=== PATIENT | female | born 1990 | race Caucasian/White ===

== ENCOUNTER 2023-01-01 07:52 | Emergency (ER) | payer MEDICAID ==
[~2023-01-01] VITALS: Ht 162.6 cm; Wt 103.0 kg
[2023-01-01 08:03] VITALS: BP 146/89
[2023-01-01] MEDS ORDERED: TOPUD MT (10:13)
== END 2023-01-01 10:28 | disposition home or self-care (01) ==
LOC: ER 07:52
DX: S71.101A Unspecified open wound, right thigh, initial encounter (principal); X58.XXXA Exposure to other specified factors, initial encounter; Y93.89 Activity, other specified; Y92.89 Other specified places as the place of occurrence of the external cause; Y99.8 Other external cause status; F41.9 Anxiety disorder, unspecified; J45.909 Unspecified asthma, uncomplicated; F32.9 Major depressive disorder, single episode, unspecified
CPT/HCPCS: 10060; 99282; Z7610

== ENCOUNTER 2023-01-03 08:49 | Emergency (ER) | payer MEDICAID ==
[~2023-01-03] VITALS: Ht 162.6 cm; Wt 96.0 kg
[~2023-01-03 08:49] MED LIST: TOPUD MT
[2023-01-03 08:59] VITALS: BP 118/93
== END 2023-01-03 10:02 | disposition home or self-care (01) ==
LOC: ER 08:49
DX: L02.416 Cutaneous abscess of left lower limb (principal); Z48.00 Encounter for change or removal of nonsurgical wound dressing; Z98.890 Other specified postprocedural states
CPT/HCPCS: 99281; Z7610

== ENCOUNTER 2025-08-07 18:59 | Emergency (ER) | payer MEDICAID, OTHER ==
[~2025-08-07] VITALS: Ht 172.7 cm; Wt 100.0 kg
[2025-08-07 19:06] VITALS: O2SAT 97
[2025-08-07 20:05] LABS: BASOPHILS % 0.8 % (0.0-2.0); EOSINOPHILS % 0.8 % (0.0-5.0); HEMATOCRIT. 47.3 % (36.0-48.0); HEMOGLOBIN. 15.3 g/dL (12.0-16.0); LYMPHOCYTES % 31.7 % (20.0-50.0); MEAN PLATELET VOLUME 9.2 fl (7.4-10.4); MONOCYTES % 6.7 % (2.0-8.0); NEUTROPHILS % 60.0 % (40.0-76.0); PLATELET 268 x1000/uL (130-400); RED BLOOD CELL COUNT 5.66 mill/uL (4.2-5.4); RED CELL DISTRIBUTION WIDTH 16.1 % (11.6-14.6)
[2025-08-07 20:13] LABS: HCG SCREEN NEGATIVE
[2025-08-07 20:16] LABS: CREATININE 1.0 mg/dL (0.6-1.0)
[2025-08-07 20:17] LABS: PROTEIN TOTAL 8.6 g/dL (6.0-8.3); UREA NITROGEN BLOOD 9 mg/dL (9-23)
[2025-08-07 20:18] LABS: ASPARTATE AMINOTRANSFERASE 12 IU/L (<34)
[2025-08-07 20:19] LABS: BILIRUBIN DIRECT 0.2 mg/dL (<=3.0); BILIRUBIN TOTAL 0.6 mg/dL (0.1-1.0)
[2025-08-07] MEDS: ACETAMINOPHEN 500MG TABLET PO ONE (22:11)
[2025-08-07] MEDS: ONDANSETRON 4MG ODT PO ONE (22:12)
[2025-08-07 22:24] LABS: CLARITY URINE TURBID (CLEAR); COLOR URINE YELLOW (YELLOW); GLUCOSE URINE 3+ (NEGATIVE); KETONES URINE NEGATIVE (NEGATIVE); LEUKOCYTE ESTERASE URINE 1+ (NEGATIVE); NITRITE URINE NEGATIVE (NEGATIVE); OCCULT BLOOD URINE TRACE (NEGATIVE); PH URINE 5.5 (4.5-8.0); PROTEIN URINE 2+ (NEGATIVE); SPECIFIC GRAVITY URINE 1.046 (1.005-1.030); UROBILINOGEN URINE 0.2 E.U./dL (0.2-1.0)
[2025-08-07 23:15] LABS: RBC URINE 0-2 /hpf (0-2); SQUAMOUS EPITHELIAL CELL URINE 3+ /lpf (RARE/1+); WBC URINE 25-50 /hpf (0-2)
[2025-08-07 23:16] LABS: BACTERIA URINE 2+; MUCUS URINE 1+ /lpf (< = 2+)
[2025-08-08] MEDS ORDERED: ACET-2708 MT (00:59)
[2025-08-08] MEDS ORDERED: ONDA4TAB50 MT (00:59)
[2025-08-08] MEDS ORDERED: CEPH500C2 MT (01:03)
[2025-08-08 02:06] VITALS: BP 122/96; PULSE 83; RESP 16; TEMP 36.9; O2SAT 98
== END 2025-08-08 02:11 | disposition home or self-care (01) ==
LOC: ER 18:59
DX: R11.2 Nausea with vomiting, unspecified (principal); E11.9 Type 2 diabetes mellitus without complications; J45.909 Unspecified asthma, uncomplicated; F41.9 Anxiety disorder, unspecified; Z79.899 Other long term (current) drug therapy
CPT/HCPCS: 80076; 80048; 81003; 80320; 82962; 84703; 83690; 85025; 86850; 86900; 86901; 87086; 87186; 87077; 36415; 76705; 99284; 74176; Q0162; G0480